=== PATIENT | male | born 1930 | race Caucasian/White ===

== ENCOUNTER 2020-07-14 09:45 | Inpatient (IN) | payer BC ==
[~2020-07-14] VITALS: Ht 185.4 cm; Wt 96.2 kg
[~2020-07-14 09:45] MED LIST: ACTONEL150 MG PO; ADULT LOW DOSE81 MG PO; AMLODIPINE BESYL5 MG PO; ASPIR 8181 MG PO; AZITHROMYCIN 2250 MG PO; CEFTIN500 MG PO; CENTRUM SILVER1 EAC1 PO; CENTRUM SILVER1 EAC4 PO; CIPRO500 MG PO; COLACE100 MG PO; COMBIVENT INH; FAMOTIDINE40 MG PO; FERROUS SULFAT325 MG PO; FISH OIL 1,0001 EAC8 PO; FLAGYL500 MG PO; FOLIC ACID1 MG PO; LIPITOR10 MG PO; METAMUCIL PAC1 UDPKT PO; METRONIDAZOLE500 M4 PO; MULTI-DAY VITA1 EACH PO; NEXIUM PO; NORCO 5-325 TA1 EACH PO; PREVACID15 MG PO; VITAMIN B12 PO; VITAMIN D1000 UNI1 PO
[2020-07-14 10:11] LABS: ABSOLUTE LYMPHOCYTES 1.4 thou/uL (0.8-5.3); ABSOLUTE MONOCYTES 1.1 thou/uL (0.0-1.2); ABSOLUTE NEUTROPHILS 8.7 thou/uL (1.6-8.1); BASOPHILS 0.4 %; EOSINOPHILS 0.1 %; HEMATOCRIT 41.9 % (42.0-52.0); HEMOGLOBIN 14.4 gm/dL (14.0-18.0); LYMPHOCYTES 12.4 %; MCH 28.9 pg (26.0-34.0); MCHC 34.3 g/dL (28.0-37.0); MCV 84.3 fL (80.0-100.0); MONOCYTES 9.4 %; MPV 8.9 fl. (7.2-11.1); NUCLEATED RBCS 0 /100WBC; PLATELET COUNT* 157 thou/uL (150-400); POLYS 77.7 %; RBC 4.97 mil/uL (4.50-6.00); RDW-CV 13.9 % (10.5-14.5); WBC 11.2 thou/uL (4.0-11.0)
[2020-07-14 10:19] LABS: CALCIUM 8.2 mg/dL (8.5-10.1); CREATININE 1.3 mg/dL (0.6-1.3); POTASSIUM 3.1 mmol/L (3.5-5.1)
[2020-07-14 10:22] LABS: APTT 28.8 Seconds (25.0-31.3); PROTIME 10.8 Seconds (9.20-11.50)
[2020-07-14 10:24] LABS: URINE BLOOD TRACE (Negative); URINE CLARITY CLEAR; URINE COLOR YELLOW; URINE GLUCOSE-RANDOM TRACE (Negative); URINE KETONES TRACE (Negative); URINE LEUKOCYTES-REFLEX NEGATIVE (Negative); URINE NITRITE-REFLEX NEGATIVE (Negative); URINE PROTEIN 1+ (Negative); URINE SPECIFIC GRAVITY >= 1.030 (1.005-1.030)
[2020-07-14 10:26] LABS: ICTOTEST (BILI CONFIRMATORY) Positive (Negative); URINE BILIRUBIN 2+ (Negative)
[2020-07-14 10:30] LABS: ALBUMIN 3.3 g/dL (3.4-5.0); TOTAL BILIRUBIN 0.7 mg/dL (<0.1-1.0); TOTAL PROTEIN 7.1 g/dL (6.4-8.2)
[2020-07-14] MEDS ORDERED: COMBIVENT INH (11:56)
[2020-07-14] MEDS ORDERED: CLONAZEPAM 0.50.5 M1 PO (11:57)
[2020-07-14 14:09] LABS: MAGNESIUM 2.1 mg/dL (1.8-2.4); PHOSPHORUS* 4.2 mg/dL (2.5-4.9)
--- NOTE | 2020-07-14 14:38 | EKG ---
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 : 1930 Requested By: Ever Grijalva Order Number: [id number] MD: Ino Beltrán Measurements Intervals [place] Rate: 80 P: [place]: QRS: -68 QRSD: 134 T: 96 QT: 393 QTc: 454 Interpretive Statements Atrial fibrillation Ventricular premature complex IVCD, consider incomplete right bundle branch block with left anterior hemiblock Consider anterior infarct Nonspecific T abnormalities, lateral leads Compared to ECG 04/19/2016 00:21:13 Ventricular premature complex(es) now present Myocardial infarct finding now possible T-wave abnormality now present Electronically Signed On 07-14-2020 14:38:46 CDT by Ino Beltrán [email or web address] <ELECTRONICALLY SIGNED> By: Ino Beltrán MD, [facility] 07/14/20 1438 0952 0952 Ino Beltrán MD, [facility] /EPI
[2020-07-14 14:44] VITALS: BP 108/60
--- NOTE | 2020-07-14 16:33 | 2DMMODE ---
[place] [address] 2 D/M-MODE ECHOCARDIOGRAM Name: SANDY AGNULO Room: [place] [address] ADM IN .R.#: [id number] Admission: 07/14/20 Attend Phys: Feliep Thorne, Discharge: Date of : 08/30/[birth year] Date of Service: 07/14/20 1632 Report #: [id number] THIS REPORT FOR: cc: Kadi Diop MD, Sarah N. MD Holkins, John M. MD [facility] ~ APPROVED REPORT Study performed: 07/14/2020 15:59:31 EXAM: Comprehensive 2D, Doppler, and color-flow Echocardiogram Patient Location: In-Patient Room #: er Status: routine BSA: 2.21 HR: 71 bpm BP: 129/74 mmHg Rhythm: Atrial Fibrillation Other Information Study Quality: Adequate Indications Congestive Heart Failure 2D Dimensions IVSd: 11.67 (7-11mm) LVOT Diam: 21.77 (18-24mm) LVDd: 41.70 mm PWd: 9.38 (7-11mm) Ascending Ao: 40.94 (22-36mm) LVDs: 24.93 (25-40mm) Aortic Root: 38.94 mm Volumes Left Atrial Volume (Systole) LA ESV Index: 42.40 mL/m2 Aortic Valve AoV Peak Kodi.: 1.06 m/s AO Peak Gr.: 4.51 mmHg LVOT Max P.21 mmHg AO Mean Gr.: 2.68 mmHg LVOT Mean P.60 mmHg LVOT Max V: 0.55 m/s AO V2 VTI: 17.47 cm LVOT Mean V: 0.35 m/s SANTIAGO (VTI): 2.01 cm2 LVOT V1 VTI: 9.44 [place] [address] 2 D/M-MODE ECHOCARDIOGRAM Name: SANDY ANGULO Room: [address] IN [facility]#: [id number] Admission: 07/14/20 Attend Phys: Felipe Thorne, Discharge: Date of : 08/30/[birth year] Date of Service: 07/14/20 1632 Report #: [id number] Pulmonary Valve PV Peak Kodi.: 0.97 m/s PV Peak Gr.: 3.78 mmHg Tricuspid Valve RAP Estimate: 5.00 mmHg TR Peak Gr.: 29.87 mmHg RVSP: 34.00 mmHg PA Pressure: 34.00 mmHg Left Ventricle The left ventricle is normal size. There is normal LV segmental wall motion. There is normal left ventricular wall thickness. Left ventricular systolic function is normal. The left ventricular ejection fraction is within the normal range. LVEF is 60%. This study is not technically sufficient to allow evaluation of the LV diastolic function due to atrial fibrillation. Right Ventricle Right ventricle is borderline dilated. The right ventricular systolic function is normal. Atria Left atrium is mildly dilated. The right atrium size is normal. Aortic Valve Mild aortic valve sclerosis. No aortic regurgitation is present. There is no aortic valvular stenosis. Mitral Valve The mitral valve is normal in structure. Mild mitral regurgitation. No evidence of mitral valve stenosis. Tricuspid Valve The tricuspid valve is normal in structure. Trace to mild tricuspid regurgitation. Mild pulmonary hypertension. Pulmonic Valve The pulmonary valve is normal in structure. Trace pulmonic regurgitation. Great Vessels The aortic root is normal in size. IVC is normal in size and collapses >50% with inspiration. Pericardium There is no pericardial [place] [address] 2 D/M-MODE ECHOCARDIOGRAM Name: SANDY ANGULO Room: [address] IN [facility]#: [id number] Admission: 07/14/20 Attend Phys: Felipe Thorne, Discharge: Date of : 08/30/[birth year] Date of Service: 07/14/20 1632 Report #: [id number] <Conclusion> The left ventricle is normal size. There is normal left ventricular wall thickness. Left ventricular systolic function is normal. The left ventricular ejection fraction is within the normal range. LVEF is 60%. This study is not technically sufficient to allow evaluation of the LV diastolic function due to atrial fibrillation. Right ventricle is borderline dilated. Left atrium is mildly dilated. The right atrium size is normal. Mild aortic valve sclerosis. No aortic regurgitation is present. There is no aortic valvular stenosis. The mitral valve is normal in structure. Mild mitral regurgitation. The tricuspid valve is normal in structure. Trace to mild tricuspid regurgitation. Mild pulmonary hypertension. The aortic root is normal in size. IVC is normal in size and collapses >50% with inspiration. There is no pericardial effusion. There is normal LV segmental wall motion. <ELECTRONICALLY SIGNED> By: Ino Beltrán MD, FACC 07/14/20 1632 [id number] Ino Beltrán MD, FACC /INF
[2020-07-14 16:57] VITALS: BP 111/56
[2020-07-14 19:00] VITALS: BP 119/57
[2020-07-14 20:00] VITALS: BP 106/53
[2020-07-15 00:22] VITALS: BP 137/59
[2020-07-15 04:42] LABS: ABSOLUTE LYMPHOCYTES 1.7 thou/uL (0.8-5.3); ABSOLUTE MONOCYTES 1.2 thou/uL (0.0-1.2); ABSOLUTE NEUTROPHILS 5.5 thou/uL (1.6-8.1); BASOPHILS 0.4 %; EOSINOPHILS 0.4 %; HEMATOCRIT 38.2 % (42.0-52.0); HEMOGLOBIN 13.4 gm/dL (14.0-18.0); LYMPHOCYTES 19.9 %; MCH 29.6 pg (26.0-34.0); MCV 84.6 fL (80.0-100.0); MONOCYTES 14.1 %; MPV 9.1 fl. (7.2-11.1); NUCLEATED RBCS 0 /100WBC; PLATELET COUNT* 145 thou/uL (150-400); POLYS 65.2 %; RBC 4.51 mil/uL (4.50-6.00); RDW-CV 13.9 % (10.5-14.5); WBC 8.4 thou/uL (4.0-11.0)
[2020-07-15 05:03] LABS: CALCIUM 8.4 mg/dL (8.5-10.1); CREATININE 1.1 mg/dL (0.6-1.3); POTASSIUM 3.3 mmol/L (3.5-5.1)
[2020-07-15 10:17] VITALS: BP 113/65
[2020-07-15 14:44] VITALS: BP 117/90
[2020-07-15 20:00] VITALS: BP 134/68
[2020-07-16 00:07] VITALS: BP 106/60
[2020-07-16 08:05] VITALS: BP 106/67
[2020-07-16 12:00] VITALS: BP 11/65
[2020-07-16 16:00] VITALS: BP 124/72
[2020-07-16 19:45] VITALS: BP 124/66
[2020-07-17 00:19] VITALS: BP 121/74
[2020-07-17 04:36] LABS: ANION GAP 11 mmol/L (7-16); BUN 38 mg/dL (7-18); CALCIUM 8.3 mg/dL (8.5-10.1); CHLORIDE 107 mmol/L (98-107); CHOLESTEROL 129 mg/dL (<200); CO2 23 mmol/L (21-32); GLUCOSE 94 mg/dL (70-99); HDL CHOLESTEROL 28 mg/dL (>40); LDL CHOLESTEROL 83 mg/dL (<100); POTASSIUM 4.4 mmol/L (3.5-5.1); SODIUM 141 mmol/L (136-145); TC:HDL 4.6 Ratio (Not establshd); TRIGLYCERIDE 94 mg/dL (<150); VLDL 19 mg/dL (<40)
[2020-07-17 04:38] LABS: SERUM ASSESSMENT CLEAR
[2020-07-17 04:44] LABS: ABSOLUTE EOSINOPHILS 0.1 thou/uL (0.0-0.7); ABSOLUTE LYMPHOCYTES 1.6 thou/uL (0.8-5.3); ABSOLUTE NEUTROPHILS 4.9 thou/uL (1.6-8.1); BASOPHILS 0.4 %; EOSINOPHILS 0.8 %; HEMATOCRIT 40.4 % (42.0-52.0); HEMOGLOBIN 14.1 gm/dL (14.0-18.0); LYMPHOCYTES 20.7 %; MCH 29.3 pg (26.0-34.0); MCV 83.9 fL (80.0-100.0); MONOCYTES 13.5 %; MPV 9.1 fl. (7.2-11.1); NUCLEATED RBCS 0 /100WBC; PLATELET COUNT* 158 thou/uL (150-400); POLYS 64.6 %; RBC 4.82 mil/uL (4.50-6.00); RDW-CV 14.2 % (10.5-14.5); WBC 7.6 thou/uL (4.0-11.0)
[2020-07-17 10:48] VITALS: BP 136/76
[2020-07-17] MEDS ORDERED: PRADAXA150 MG PO (10:52)
--- NOTE | 2020-07-17 10:54 | EKG ---
[place] [address] ELECTROCARDIOGRAM REPORT Name: SANDY ANGULO Room: [address] ADM IN M.R.#: [id number] Admission: 07/14/20 Attend Phys: Felipe Thorne, Discharge: Date of : 08/30/[birth year] Date of Service: 07/16/20 0938 Report #: [id number] THIS REPORT FOR: //name// 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 NAQVI : 1930 Requested By: Grady Soliz Order Number: [id number] Reading MD: Grady Soliz Measurements Intervals [place] Rate: 75 P: 0 NC: 152 QRS: -67 QRSD: 129 T: 75 QT: 404 QTc: 452 Interpretive Statements atrial fibrillation with aberrant conduction RBBB left anterior fasicular block Baseline wander in lead(s) V5 Compared to ECG 07/14/2020 09:52:21 no change Electronically Signed On 07-17-2020 10:54:03 CDT by Grady Soliz [email or web address] <ELECTRONICALLY SIGNED> By: Grady Soliz MD, FAC 07/17/20 1054 0938 Grady Soliz MD, FAC /EPI
[2020-07-17 11:01] VITALS: BP 136/76
[2020-07-17] MEDS ORDERED: LOPERAMIDE 2 MG2 M1 PO (11:16)
[2020-07-17 12:00] VITALS: BP 104/68
--- NOTE | 2020-07-18 13:50 | CON ---
[address] [address] CONSULTATION Name: SANDY ANGULO Room: [address] IN M.R.#: [id number] Admission: 07/14/20 Attend Phys: Felipe Thorne MD Discharge: 07/17/20 Date of : [birth year] Report #: [id number] THIS REPORT FOR: cc: Kadi Diop MD, Sarah N. MD Blick, David R. MD [facility] ~ DOC #: [id number] cc: Kadi Soliz MD [facility] DATE OF CONSULTATION: 07/15/2020 CARDIOLOGY CONSULTATION HISTORY OF PRESENT ILLNESS: The patient is an 89-year-old white male whom I was asked to see in the hospital today after he is noted to be in atrial fibrillation. The history is obtained from the patient and his daughter who is present. He apparently presented in 1999 with shortness of breath. He was found to have coronary artery disease. He eventually underwent quadruple coronary artery bypass surgery at [facility] with use of a free left radial graft and the EDMONDS graft. He has done well since that time. He has not had a recent stress test. He no longer sees cardiology. He stays very active despite his advanced age. Denied any recent chest pain, shortness of breath, palpitations, syncope, peripheral edema. He was doing well until several days ago, he developed watery stools. He has had about 4 stools a day. He has had some nausea, loss of appetite. He had some vomiting. There has been no blood in his diarrhea. He is not living with anyone as having diarrhea. He has not been on any antibiotics. He denied any fever. Because of weakness, he called the EMS and brought to [place] last night and admitted for further evaluation and treatment. PAST MEDICAL HISTORY: Otherwise, he has had previous prostatectomy for cancer. He has had hemicolectomy for diverticular disease. He has a history of hyperlipidemia. No history of diabetes. CURRENT MEDICATIONS: Include Lipitor, amlodipine, Prevacid, aspirin, uses inhaler, clonazepam. ALLERGIES: HE HAS A PREVIOUS INTOLERANCE TO SULFA DRUGS. FAMILY HISTORY: His father had heart attack. SOCIAL HISTORY: He is . His actually in a prison. He is retired from [employer]. He lives in [place]. He quit smoking years ago, [place] [address] CONSULTATION Name: SANDY ANGULO Room: [address]#: [id number] Admission: 07/14/20 Attend Phys: Felipe Thorne MD Discharge: 07/17/20 Date of : [birth year] Report #: [id number] REVIEW OF SYSTEMS: No history of stroke, asthma, liver disease, kidney disease, chronic skin condition, psychiatric illness. PHYSICAL EXAMINATION: GENERAL: Revealed an elderly male, lying in bed, he appeared in no distress. VITAL SIGNS: He had a blood pressure of 110/60, his pulse is 80, afebrile. HEENT: He was anicteric. Conjunctivae pink. Mucous membranes moist. NECK: Veins do not appear distended. No carotid bruits. Neck is supple. CHEST: Clear to auscultation. HEART: Irregular rhythm. No significant murmurs. ABDOMEN: Soft. EXTREMITIES: No pitting edema. Dorsalis pedis pulse cannot be palpated. SKIN: Cool and dry. NEUROLOGIC: Nonfocal. LABORATORY DATA: ECG on admission showed atrial fibrillation, controlled ventricular response rate, premature aberrant conduction was noted. There was a left anterior fascicular block and incomplete right bundle branch block noted. His workup; he actually had an echocardiogram performed yesterday that showed ejection fraction of 60%, left atrial enlargement, aortic sclerosis, mild mitral regurgitation. He had a portable chest x-ray that showed no acute abnormality. He actually had a CT scan of the abdomen in the emergency room because of his diarrhea that showed possible gallstones, hiatal hernia, otherwise unremarkable. He had lab work in the emergency room; sodium 138, creatinine 1.1. His liver function studies were normal. Troponin 0.06. BNP 2010. His white blood cell count is 8.4, hematocrit 38.2. His C. difficile test is pending. COVID antigen stat test was negative. Urinalysis, 1+ protein, trace blood. IMPRESSION AND RECOMMENDATIONS: 1. Atrial fibrillation. Suspect persistent. Rate controlled. I would recommend anticoagulation with Xarelto because of his high CHADS score. 2. Previous coronary bypass surgery. No recent angina. 3. Diarrhea. Suspect infectious. 4. History of prostate cancer. 5. Hyperlipidemia. The patient is on a statin drug. 6. Hypertension. The patient is on a calcium loraine. 7. Sick sinus syndrome. Rate is controlled despite the fact that he is on medication, block AV node conduction. If he develops slow atrial fibrillation, he would require a pacemaker. Grady Soliz MD [facility] MARY/[address] [address] CONSULTATION Name: SANDY ANGULO Room: [address]#: [id number] Admission: 07/14/20 Attend Phys: Felipe Thorne MD Discharge: 07/17/20 Date of : [birth year]/30/[birth year] Report #: [id number] <ELECTRONICALLY SIGNED> By: Grady Soliz MD, FACC 07/18/20 1350 1132 [id number] alfredo Soliz MD, FAC /nt
== END 2020-07-17 15:25 | disposition home or self-care (01) | DRG 391 ==
LOC: M.ERS 09:45 → M.TBA-ER 10:44 → M.2W 10:44
PROVIDERS: Family Medicine; ADMIT Internal Medicine; ATTEND Internal Medicine
DX: A08.4 Viral intestinal infection, unspecified (principal); I50.33 Acute on chronic diastolic (congestive) heart failure; E86.0 Dehydration; E87.6 Hypokalemia; I25.10 Atherosclerotic heart disease of native coronary artery without angina pectoris; I48.91 Unspecified atrial fibrillation; E78.00 Pure hypercholesterolemia, unspecified; J44.9 Chronic obstructive pulmonary disease, unspecified; R19.7 Diarrhea, unspecified; E78.5 Hyperlipidemia, unspecified; K21.9 Gastro-esophageal reflux disease without esophagitis; I11.0 Hypertensive heart disease with heart failure; I49.5 Sick sinus syndrome; Z20.822 Contact with and (suspected) exposure to COVID-19; Z85.46 Personal history of malignant neoplasm of prostate; Z95.1 Presence of aortocoronary bypass graft; Z90.49 Acquired absence of other specified parts of digestive tract; Z88.2 Allergy status to sulfonamides; Z79.899 Other long term (current) drug therapy; Z79.82 Long term (current) use of aspirin; Z87.891 Personal history of nicotine dependence